=== PATIENT | male | born 1945 | race Caucasian/White ===

== ENCOUNTER 2019-03-23 16:05 | Emergency (ER) | payer MEDICARE, BC ==
--- NOTE | 2019-03-23 16:46 | ED ---
Back Pain - HPI Summary HPI Summary: A 73 y/o male presents to [facility] with a chief complaint of neck pain for the past three days. The patient has a Hx of spinal stenosis and had cortisone injections in his lumbar spine two weeks ago. He says that his pain is intermittent but claims that the pain stays for 2-3 hours. He says that he has neck spasms that have been shooting "up into (his) brain". At triage the patient rated his pain as a 7/10 in severity. The patient reportedly has a condition with his legs and walks with a cane. The patient was sitting in a car at the onset of his pain. The patient took some Flexeril which was prescribed after his cortisone injections, and it did not alleviate his symptoms. The patient has a Hx of HTN, HLD and DM, and reports taking his medications properly. He says that he has been taking Dupixent shots every two weeks for Eczema. He is allergic to doxycycline. - History of Current Complaint Chief Complaint: Annemarie Stated Complaint: NECK PAIN PER PT Time Seen by Provider: 03/23/19 16:36 Hx Obtained From: Patient Onset/Duration: Sudden Onset, Lasting Days, Still Present Onset/Duration: Started Days Ago, Still Present Timing: Intermittent - lasting for 2-3 hours Back Pain Location: Is Discrete @ - neck Severity Initially: Severe Severity Currently: Severe Pain Intensity: 7 Pain Scale Used: 0-10 Numeric Character: Spasmodic Aggravating Symptom(s): Nothing Alleviating Symptom(s): Nothing Associated Signs And Symptoms: Negative: Fever - Allergies/Home Medications Allergies/Adverse Reactions: Allergies Allergy/AdvReac Type Severity Reaction Status Date / Time doxycycline Allergy See Comment Verified 03/23/19 16:32 PMH/Surg Hx/FS Hx/Imm Hx Endocrine/Hematology History: Reports: Hx Diabetes Cardiovascular History: Reports: Hx Hypercholesterolemia, Hx Hypertension Infectious Disease History: No Infectious Disease History: Denies: Traveled Outside the [place] in Last 30 Days - Family History Known Family History: Negative: Blood Disorder - Social History Alcohol Use: Occasionally Substance Use Type: Reports: None Smoking Status (MU): Former Smoker Review of Systems Negative: Fever Positive: Other - positive: neck pain All Other Systems Reviewed And Are Negative: Yes Physical Exam - Summary Physical Exam Summary: Appearance: The patient is well-nourished in no acute distress and in no acute pain. Skin: The skin is warm and dry and skin color reflects adequate perfusion. HEENT: The head is normocephalic and atraumatic. The pupils are equal and reactive. The conjunctivae are clear and without drainage. Nares are patent and without drainage. Mouth reveals moist mucous membranes and the throat is without erythema and exudate. The external ears are intact. The ear canals are patent and without drainage. The tympanic membranes are intact. Neck: The neck is supple with full range of motion and non-tender. There are no carotid bruits. There is no neck vein distension. Respiratory: Chest is non-tender. Lungs are clear to auscultation and breath sounds are symmetrical and equal. Cardiovascular: Heart is regular rate and rhythm. There is no murmur or rub auscultated. There is no peripheral edema and pulses are symmetrical and equal. Abdomen: The abdomen is soft and non-tender. There are normal bowel sounds heard in all four quadrants and there is no organomegaly palpated. Musculoskeletal: There is paracervical and trapezius tenderness on the right. There is good capillary refill. There is no peripheral edema or calf tenderness elicited. Neurological: Patient is alert and oriented to person, place and time. The patient has symmetrical motor strength in all four extremities. Cranial nerves are grossly intact. Deep tendon reflexes are symmetrical and equal in all four extremities. Psychiatric: The patient has an appropriate affect and does not exhibit any anxiety or depression. Triage Information Reviewed: Yes Vital Signs On Initial Exam: Initial Vitals Temp Pulse Resp BP Pulse Ox 98.7 F 79 18 172/115 97 03/23/19 16:06 03/23/19 16:06 03/23/19 16:06 03/23/19 16:06 03/23/19 16:06 Vital Signs Reviewed: Yes Diagnostics - Vital Signs Vital Signs Temp Pulse Resp BP Pulse Ox 03/23/19 16:06 98.7 F 79 18 172/115 97 - Laboratory Lab Statement: Any lab studies that have been ordered have been reviewed, and results considered in the medical decision making process. - CT Cervical Spine CT Interpretation Completed By: Radiologist Summary of CT Findings: 1. DEGENERATIVE DISC DISEASE AND OSTEOARTHRITIS. 2. THERE IS MODERATE NARROWING OF THE CENTRAL CANAL AT C3-C4 AND C5-C6, WITH MILD. NARROWING AT C4-C5 AND C6-C7. 3. THERE IS MULTILEVEL NEUROFORAMINAL NARROWING DESCRIBED ABOVE. ED physician has reviewed this imaging report. Re-Evaluation - Re-Evaluation First Eval Re-Evaluation Time: 19:11 Back Pain Course/Dx - Course Course Of Treatment: Mr. Ernandez has obvious cervical disease. He had some low back spasm secondary to recent treatment of his chronic low back pain. And I think this likely caused him to hold himself differently and translated to spasms in his neck. I recommended Ativan as a muscle relaxer and follow-up with his PCP on return home. - Diagnoses Provider Diagnoses: Cervical radiculopathy Discharge - Sign-Out/Discharge Documenting (check all that apply): Patient Departure - DC Patient Received Moderate/Deep Sedation with Procedure: No - Discharge Plan Condition: Stable Disposition: HOME Prescriptions: LORazepam TAB(*) [Ativan TAB(*)] 1 mg PO Q6H PRN #20 tab MDD 4 PRN Reason: Pain Patient Education Materials: Cervical Radiculopathy (ED) Referrals: Henry Hoff [Primary Care Provider] - (2-3 days) Additional Instructions: Follow up with your PCP in 2-3 days. Return to the ED if you experience any new or worsening symptoms. - Billing Disposition and Condition Condition: STABLE Disposition: Home - Attestation Statements Document Initiated by Amy: Yes Documenting Scribe: Renan Toure Provider For Whom Amy is Documenting (Include Credential): Phli Salazar MD Scribe Attestation: I, Renan Toure, scribed for Phil Salazar MD on 03/23/19 at 2203. Scribe Documentation Reviewed: Yes Provider Attestation: The documentation as recorded by the Renan barbosa accurately reflects the service I personally performed and the decisions made by me, Phil Salazar MD Status of Scribe Document: Viewed
[2019-03-23] MEDS ORDERED: LORazepam TAB(*) 1 MG PO ONE (17:03)
[2019-03-23] MEDS ORDERED: Ketorolac INJ* 30 MG/ML 1 ML VIAL IM ONE (17:03)
[2019-03-23 19:17] VITALS: BP 175/104
== END 2019-03-23 19:16 | disposition home or self-care (01) ==
LOC: ED 16:05
DX: M50.10 Cervical disc disorder with radiculopathy, unspecified cervical region (principal); E11.9 Type 2 diabetes mellitus without complications; I10 Essential (primary) hypertension; E78.00 Pure hypercholesterolemia, unspecified; Z88.1 Allergy status to other antibiotic agents; Z87.891 Personal history of nicotine dependence
CPT/HCPCS: 72125; 96372; 99282; A9270-GY; J1885